=== PATIENT | male | born 1980 | race Caucasian/White ===

== ENCOUNTER 2018-01-04 11:04 | Emergency (ER) | payer OTHER, MEDICAID ==
[2018-01-04 11:18] VITALS: BP 156/98; PULSE 94; RESP 20; TEMP 98.1; O2SAT 98
--- NOTE | 2018-01-04 11:40 | C.PDOC ---
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 Patient denies fall, back pain, numbness or weakness. Time Seen by Provider: 01/04/18 11:12 Chief Complaint (Nursing): Lower Extremity Problem/Injury History Per: Patient History/Exam Limitations: no limitations Onset/Duration Of Symptoms: Days Current Symptoms Are (Timing): Still Present Past Medical History Reviewed: Historical Data, Nursing Documentation, Vital Signs Vital Signs: Last Vital Signs Temp 98.1 F 01/04/18 11:11 Pulse 94 H 01/04/18 11:11 Resp 20 01/04/18 11:11 BP 156/98 H 01/04/18 11:11 Pulse Ox 98 01/04/18 12:23 - Medical History PMH: Asthma, Gastrointestinal Ulcer Surgical History: No Surg Hx Family History: States: No Known Family Hx - Social History Hx Alcohol Use: No (Former) Hx Substance Use: No (Past use of marijuana) - Immunization History Hx Tetanus Toxoid Vaccination: No Hx Influenza Vaccination: No Hx Pneumococcal Vaccination: No Review Of Systems Musculoskeletal: Positive for: Foot Pain. Negative for: Back Pain, Leg Pain Skin: Negative for: Rash, Bruising Neurological: Negative for: Weakness, Numbness Physical Exam - Physical Exam Appears: Non-toxic, No Acute Distress Skin: Warm, Dry, No Rash Head: Atraumatic, Normacephalic Eye(s): bilateral: Normal Inspection Neck: Normal ROM Chest: Symmetrical Extremity: Tenderness (left ankle below lateral malleolus), Capillary Refill (< 2 seconds), No Deformity, Swelling (left ankle below malleolus) Pulses: Left Dorsalis Pedis: Normal Neurological/Psych: Oriented x3, Normal Speech, Normal Motor, Normal Sensation Gait: Steady ED Course And Treatment O2 Sat by Pulse Oximetry: 98 (RA) Pulse Ox Interpretation: Normal Medical Decision Making Medical Decision Making: Impression: Ankle injury Plan: * Ankle xray * Motrin * Ice pack Progress: Xray viewed by me showing no acute fracture or dislocation Clinical partner applied aircast splint to ankle. Patient declined crutches. Patient advised to rest ice and elevate ankle. Recommend Motrin for pain. Disposition Counseled Patient/Family Regarding: Diagnosis, Need For Followup, Rx Given - Disposition Referrals: Ned Ulloa III, MD [Staff Provider] - Disposition: HOME/ ROUTINE Disposition Time: 11:39 Condition: GOOD Additional Instructions: Your xray was normal, no fracture. Please apply ice to area 15 minutes three times a day. Take Motrin as needed for pain every 6 hours, with food to not upset stomach. Follow up with orthopedic if pain persists over one week. Prescriptions: Ibuprofen [Motrin] 600 mg PO Q8 #30 tab Instructions: Ankle Sprain (DC) Forms: [employer] (Armenian), Work Excuse - POA Present On Arrival: None - Clinical Impression Clinical Impression: Left ankle sprain - PA / DIET TECH / Resident Statement MD/DO has reviewed & agrees with the documentation as recorded. - Scribe Statement The provider has reviewed the documentation as recorded by the Brook Jones All medical record entries made by the Maciblanette were at my direction and personally dictated by me. I have reviewed the chart and agree that the record accurately reflects my personal performance of the history, physical exam, medical decision making, and the department course for this patient. I have also personally directed, reviewed, and agree with the discharge instructions and disposition.
--- NOTE | 2018-01-04 12:00 | RAD ---
Date of service: 01/04/2018 PROCEDURE: Left Ankle Radiographs. HISTORY: pain s.p twisting COMPARISON: None FINDINGS: BONES: No acute fracture. JOINTS: Ankle mortise maintained. Talar dome intact SOFT TISSUES: Normal. OTHER FINDINGS: None. IMPRESSION: No demonstrated fracture or dislocation.
== END 2018-01-04 11:58 | disposition home or self-care (01) ==
LOC: C.ER 11:04
DX: S93.402A Sprain of unspecified ligament of left ankle, initial encounter (principal); X50.9XXA Other and unspecified overexertion or strenuous movements or postures, initial encounter; Y92.89 Other specified places as the place of occurrence of the external cause; Y99.0 Civilian activity done for income or pay

== ENCOUNTER 2018-02-16 22:10 | Emergency (ER) | payer OTHER, MEDICAID ==
[2018-02-16 22:47] LABS: BASO # 0.1 K/uL (0.0-0.2); BASO % 0.5 % (0.0-2.0); EOS # 0.1 K/uL (0.0-0.7); EOS % 1.2 % (0.0-4.0); HEMOGLOBIN 14.3 g/dL (12.0-18.0); LYMPH # 3.2 K/uL (1.0-4.3); LYMPH % 28.2 % (20.0-40.0); MEAN CELL VOLUME 80.9 fL (80.0-94.0); MEAN CORPUSCULAR HEMOGLOBIN 26.7 pg (27.0-31.0); MEAN PLATELET VOLUME 9.2 fL (7.2-11.7); MONO % 8.5 % (0.0-10.0); NEUT # 7.1 K/uL (1.8-7.0); NEUT % 61.6 % (50.0-75.0); NRBC % 0.1 % (0.0-2.0); RBC 5.36 Mil/uL (4.40-5.90); RED CELL DISTRIBUTION WIDTH 15.4 % (11.5-14.5); WHITE BLOOD COUNT 11.5 K/uL (4.8-10.8)
[2018-02-16 22:59] LABS: ALB/GLOB RATIO 1.3 (1.0-2.1); ALBUMIN 4.5 g/dL (3.5-5.0); ALT/SGPT 46 U/L (21-72); AST/SGOT 26 U/L (17-59); BLOOD UREA NITROGEN 13 mg/dL (9-20); CALCIUM 9.4 mg/dl (8.6-10.4); GFR NON-AFRICAN AMERICAN > 60; LIPASE 61 U/L (23-300)
--- NOTE | 2018-02-16 23:41 | C.PDOC ---
History Of Present Illness 37 year old male with PMHx of chronic lower back pain presents to the ED for evaluation. 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 Patient c/o bright red blood per rectum with bowel movements for the past few weeks. Patient states he recently got out of care home and has put on a significant amount of weight up to 25 pounds in the last 2 months. Patient states he had similar episodes during incarceration but did not receive further evaluation. Patient is also c/o crampy abdominal pain. Patient denies fever, chill, nausea, vomit, diarrhea, weight loss, dizziness. Time Seen by Provider: 02/16/18 22:22 Chief Complaint (Nursing): GI Problem History Per: Patient History/Exam Limitations: no limitations Onset/Duration Of Symptoms: Days Current Symptoms Are (Timing): Still Present Location Of Pain/Discomfort: Diffuse Radiation Of Pain To:: None Quality Of Discomfort: Cramping Associated Symptoms: denies: Nausea, Vomiting, Diarrhea Alleviating Factors: None Recent travel outside of the [place]: No Additional History Per: Patient Past Medical History Reviewed: Historical Data, Nursing Documentation, Vital Signs Vital Signs: Last Vital Signs Temp 98.2 F 02/16/18 22:15 Pulse 96 H 02/16/18 22:15 Resp 18 02/16/18 22:15 BP 153/97 H 02/16/18 22:15 Pulse Ox 96 02/17/18 00:33 - Medical History PMH: Asthma, Gastrointestinal Ulcer Surgical History: No Surg Hx Family History: States: Unknown Family Hx - Social History Hx Alcohol Use: No (Former) Hx Substance Use: No (Past use of marijuana) - Immunization History Hx Tetanus Toxoid Vaccination: No Hx Influenza Vaccination: No Hx Pneumococcal Vaccination: No Review Of Systems Constitutional: Negative for: Fever, Chills, Weight loss Cardiovascular: Negative for: Chest Pain, Palpitations Respiratory: Negative for: Cough, Shortness of Breath Gastrointestinal: Positive for: Abdominal Pain, Melena. Negative for: Nausea, Vomiting, Diarrhea Genitourinary: Negative for: Dysuria, Hematuria Skin: Negative for: Rash Neurological: Negative for: Weakness, Numbness Physical Exam - Physical Exam Appears: Non-toxic, No Acute Distress, Other (morbidly obese) Skin: Normal Color, Warm, Dry Head: Atraumatic, Normacephalic Eye(s): bilateral: Normal Inspection Neck: Normal ROM, Supple Chest: Symmetrical Cardiovascular: Rhythm Regular Respiratory: Normal Breath Sounds, No Rales, No Rhonchi, No Wheezing Gastrointestinal/Abdominal: Soft, No Tenderness, No Guarding, No Rebound Rectal: Maroon Stool (light brown), Hemorrhoids (large external at 9 o'clock position), No Tenderness Back: No CVA Tenderness, No Vertebral Tenderness Extremity: Normal ROM, No Tenderness, No Swelling Neurological/Psych: Oriented x3, Normal Speech, Normal Motor, Normal Sensation Gait: Steady ED Course And Treatment - Laboratory Results Result Diagrams: 02/16/18 22:43 02/16/18 22:43 Lab Interpretation: Normal ([id number] mild leukocytosis, occult stool blood neg, UA neg.) O2 Sat by Pulse Oximetry: 96 (ON RA) Pulse Ox Interpretation: Normal - Radiology CXR: Interpreted by Me CXR Interpretation: Yes: No Acute Disease - Other Rad abd x 2 X-Ray: Interpreted by Me (+FOS) Reevaluation Time: 00:28 Reassessment Condition: Improved Medical Decision Making Medical Decision Making: Plan: * Labs * Obstructive series X-Ray * UA rapid weight gain since release from incarceration Chronic constipation External hemorroid causing BRBPR with hard stools guaiaic stool neg, hgb 14 wnl diet/exercise educated. outpatient f/u for GI referral PRN Disposition Doctor Will See Patient In The: Office Counseled Patient/Family Regarding: Studies Performed, Diagnosis - Disposition Referrals: [facility] [Outside] [facility] [Outside] [facility] [Outside] [facility] [Outside] [place] [facility] [Outside] Non [facility] Provider, [Primary Care Provider] - Disposition: HOME/ ROUTINE Disposition Time: 00:29 Condition: GOOD Additional Instructions: drink a laxative now (recommend and bottle of Mag Citrate) re-evaluate your abdominal discomfort after using the bathroom 2-3 times. diet changes and weight loss 7 fresh fruits and vegetables daily to promote more soft/formed bowel movements drink more water. this will help heal external hemorroids Follow-up with our outpatient [facility] to consider referral to GI as needed Occasional laxatives as needed should symptoms return Instructions: Hemorrhoids, Constipation, Adult (DC) Forms: [employer] (Uruguayan) - Clinical Impression Clinical Impression: Hemorrhoids, Colicky abdominal pain - Scribe Statement The provider has reviewed the documentation as recorded by the Scribe Mendez Vera All medical record entries made by the Scribe were at my direction and personally dictated by me. I have reviewed the chart and agree that the record accurately reflects my personal performance of the history, physical exam, medical decision making, and the department course for this patient. I have also personally directed, reviewed, and agree with the discharge instructions and disposition.
[2018-02-17 00:34] LABS: SQUAMOUS EPITHIAL 7 /hpf (0-5); URINE BILIRUBIN NEGATIVE (NEGATIVE); URINE BLOOD 1+ (NEGATIVE); URINE CLARITY Hazy (Clear); URINE COLOR Yellow (YELLOW); URINE GLUCOSE (UA) NORMAL (Normal); URINE LEUKOCYTE ESTERASE 1+ Leu/uL (Negative); URINE PROTEIN 1+ mg/dL (NEGATIVE); URINE UROBILINOGEN NORMAL mg/dL (0.2-1.0)
[2018-02-17 00:41] LABS: BENZODIAZEPINES, UR NEGATIVE (NEGATIVE); OPIATES, UR NEGATIVE (NEGATIVE); PHENCYCLIDINE, UR NEGATIVE (NEGATIVE)
[2018-02-17 00:44] LABS: BARBITURATES, UR POSITIVE (NEGATIVE)
[2018-02-17 00:52] VITALS: BP 153/90; PULSE 84; RESP 20; TEMP 98; O2SAT 100
--- NOTE | 2018-02-17 09:10 | RAD ---
Date of service: 02/16/2018 PROCEDURE: Radiographs of the chest and abdomen (obstructive series) HISTORY: Abdominal pain COMPARISON: No prior. TECHNIQUE: AP radiograph of the chest, with upright and supine radiographs of the abdomen. FINDINGS: CHEST: Lungs: Clear. Cardiovascular: Normal size heart. No pulmonary vascular congestion. Pleura: No pleural fluid. No pneumothorax. Other findings: None. ABDOMEN AND PELVIS: Bowel: Unremarkable bowel gas pattern. No evidence of mechanical obstruction. Free air: None. Bones: Unremarkable. Other findings: Few small calcifications seen overlying the inferior true pelvis may represent calcified pelvic phleboliths however correlation with urinalysis suggested to exclude the possibility of urine bladder or UVJ calculus. IMPRESSION: Unremarkable radiographs of chest and abdomen. No evidence of mechanical bowel obstruction.
== END 2018-02-17 00:52 | disposition home or self-care (01) ==
LOC: SUPCPDRO 22:10 → C.ER 22:10
DX: K64.4 Residual hemorrhoidal skin tags (principal); R10.84 Generalized abdominal pain
CPT/HCPCS: 74022; 80053; 80320; 80324; 80345; 80346; 80349; 80353; 80358; 80361; 81001; 83690; 83992; 85025; 99285; G0328

== ENCOUNTER → 2018-02-17 18:25 | Emergency (ER) | payer OTHER, MEDICAID ==
[~2018-02-17 18:25] MED LIST: Bacitracin 500 Units/gm Oint Foilpak UD ONE
== END | disposition left against medical advice (07) ==
LOC: C.ER 18:25
DX: Z02.89 Encounter for other administrative examinations (principal); J45.909 Unspecified asthma, uncomplicated

== ENCOUNTER 2018-06-18 01:31 | Emergency (ER) | payer OTHER, MEDICAID ==
[2018-06-18 01:40] VITALS: BP 124/83; PULSE 105; RESP 18; TEMP 97.9; O2SAT 98
--- NOTE | 2018-06-18 02:16 | C.PDOC ---
History Of Present Illness 38 year old male presents to the ER with a complaint of itching a discoloration to the upper arms at the site of tattoos that were placed 1 week ago. Patient states the skin seems to be peeling off with redness but no pain fever or other complaints. Time Seen by Provider: 06/18/18 01:59 Chief Complaint (Nursing): Abnormal Skin Integrity History Per: Patient History/Exam Limitations: no limitations Onset/Duration Of Symptoms: Days (1 week) Current Symptoms Are (Timing): Still Present Location Of Injury: Right: Arm (Upper), Left: Arm Quality Of Symptoms: Itching, Other (Redness) Recent travel outside of the [place]: No Past Medical History Reviewed: Historical Data, Nursing Documentation, Vital Signs Vital Signs: Last Vital Signs Temp 97.9 F 06/18/18 01:39 Pulse 105 H 06/18/18 01:39 Resp 18 06/18/18 01:39 BP 124/83 06/18/18 01:39 Pulse Ox 98 06/18/18 01:39 - Medical History PMH: Asthma, Gastrointestinal Ulcer Family History: States: Unknown Family Hx - Social History Hx Alcohol Use: No (Former/on the program) Hx Substance Use: No (Past use of marijuana) - Immunization History Hx Tetanus Toxoid Vaccination: No Hx Influenza Vaccination: No Hx Pneumococcal Vaccination: No Review Of Systems Constitutional: Negative for: Fever, Chills Skin: Positive for: Other (Itching and redness) Physical Exam - Physical Exam Appears: Non-toxic Skin: Warm, Dry, Other (Diffuse tattoos to bilateral upper extremities with few scattered spots of appearingly recent tattoos with localized erythema and mild scabbing. No drainage, streaking, diffuse erythema, warmth, fluctuant mass.) Head: Atraumatic, Normacephalic Eye(s): bilateral: Normal Inspection Extremity: Normal ROM (x4) Pulses: Left Radial: Normal, Right Radial: Normal Neurological/Psych: Oriented x3, Normal Speech, Normal Motor, Normal Sensation ED Course And Treatment O2 Sat by Pulse Oximetry: 98 (Room air) Pulse Ox Interpretation: Normal Progress Note: Benadryl administered for itching with relief. Patient given keflex prophylactically and advised to follow up with PMD or return if symptoms worsen. Disposition Counseled Patient/Family Regarding: Diagnosis, Need For Followup - Disposition Referrals: [facility] [Outside] Disposition: HOME/ ROUTINE Disposition Time: 02:02 Condition: STABLE Additional Instructions: Please follow up with PMD Apply warm compress to area Apply neosporin ointment Take zyrtec or claritin for itching Return to ER if worse Prescriptions: Cephalexin [cephalexin] 500 mg PO Q6 #20 cap Instructions: Contact Dermatitis (DC) Forms: [employer] (Bulgarian) - Clinical Impression Clinical Impression: Contact dermatitis, Skin irritation - PA / PROFESSOR OF ARCHITECTURE / Resident Statement MD/DO has reviewed & agrees with the documentation as recorded. - Scribe Statement The provider has reviewed the documentation as recorded by the Scriblanette Mohan All medical record entries made by the Maciblanette were at my direction and personally dictated by me. I have reviewed the chart and agree that the record accurately reflects my personal performance of the history, physical exam, medical decision making, and the department course for this patient. I have also personally directed, reviewed, and agree with the discharge instructions and disposition.
== END 2018-06-18 02:24 | disposition home or self-care (01) ==
LOC: C.ER 01:31
DX: L25.9 Unspecified contact dermatitis, unspecified cause (principal)

== ENCOUNTER 2018-09-08 23:26 | Emergency (ER) | payer MEDICAID, OTHER ==
[2018-09-08 23:34] VITALS: BP 153/100; PULSE 86; RESP 16; TEMP 98; O2SAT 98
--- NOTE | 2018-09-09 00:44 | C.PDOC ---
History Of Present Illness 38 year old male presents to the ED c/o right hand pain. Patient reports while at work today a michael feel on top of his right hand. Patient reports pain worsens with movement of the hand. Patient denies rash, weakness, numbness, other extremity injuries. Time Seen by Provider: 09/08/18 23:36 Chief Complaint (Nursing): Upper Extremity Problem/Injury History Per: Patient History/Exam Limitations: no limitations Onset/Duration Of Symptoms: Hrs Current Symptoms Are (Timing): Still Present Quality: "Pain" Exacerbating Factor(s): Movement Recent travel outside of the [place]: No Additional History Per: Patient Past Medical History Reviewed: Historical Data, Nursing Documentation, Vital Signs Vital Signs: Last Vital Signs Temp 98 F 09/08/18 23:33 Pulse 86 09/08/18 23:33 Resp 16 09/08/18 23:33 BP 153/100 H 09/08/18 23:33 Pulse Ox 98 09/08/18 23:33 - Medical History PMH: Asthma, Gastrointestinal Ulcer Surgical History: No Surg Hx Family History: States: Unknown Family Hx - Social History Hx Alcohol Use: No (Former/on the program) Hx Substance Use: No (Past use of marijuana) - Immunization History Hx Tetanus Toxoid Vaccination: No Hx Influenza Vaccination: No Hx Pneumococcal Vaccination: No Review Of Systems Constitutional: Negative for: Fever, Chills Respiratory: Negative for: Cough Gastrointestinal: Negative for: Nausea, Vomiting Musculoskeletal: Positive for: Hand Pain Skin: Negative for: Rash Neurological: Negative for: Weakness, Numbness Physical Exam - Physical Exam Appears: Non-toxic, No Acute Distress Skin: Normal Color, Warm, Dry Head: Atraumatic, Normacephalic Eye(s): bilateral: Normal Inspection Neck: Normal ROM, Supple Extremity: Normal ROM (painful right hand, remainder of extremities normal), Tenderness (right snuff box ), Capillary Refill (< 2 seconds), Swelling (right thenar eminence ) Pulses: Left Radial: Normal, Right Radial: Normal Neurological/Psych: Oriented x3, Normal Speech, Normal Cognition, Normal Motor, Normal Sensation Gait: Steady ED Course And Treatment O2 Sat by Pulse Oximetry: 98 (ON RA) Pulse Ox Interpretation: Normal - Other Rad Right hand X-Ray X-Ray: Interpreted by Me, Viewed By Me Interpretation: No acute fracture seen, old healed fracture of 5th metacarpal seen Progress Note: Plan: - right hand X-Ray. Patient was placed on a short volar splint for support and possible scafoid fracture. Patient was advised to take NSAIDs for pain management and follow up with PMD and hand doctor. Disposition Counseled Patient/Family Regarding: Diagnosis, Need For Followup - Disposition Referrals: Chloe Malloy MD [Staff Provider] - Disposition: HOME/ ROUTINE Disposition Time: 00:41 Condition: STABLE Additional Instructions: Keep splint for support Follow up with hand doctor Return to ER if severe pain, moderate swelling, numbness, or worse Prescriptions: Ibuprofen [Motrin] 600 mg PO Q6H #20 tab Instructions: Contusion (DC) Forms: [employer] [employer] (Maltese), Work Excuse - Clinical Impression Clinical Impression: Injury of right hand, Contusion of hand, right - PA / TRANSACTIONAL PARALE[employer] / Resident Statement MD/DO has reviewed & agrees with the documentation as recorded. - Scribe Statement The provider has reviewed the documentation as recorded by the Scribe Mendez Vera All medical record entries made by the Scribe were at my direction and personally dictated by me. I have reviewed the chart and agree that the record accurately reflects my personal performance of the history, physical exam, medical decision making, and the department course for this patient. I have also personally directed, reviewed, and agree with the discharge instructions and disposition.
--- NOTE | 2018-09-09 06:13 | RAD ---
Right hand three views History: Injury. Pain. Comparison: None available. Findings: Cortical thickening with bony hypertrophy noted at the base of the 5th metacarpal bone suggestive for chronic fracture deformity. Clinical correlation. Remainder of the visualized osseous structures appear grossly preserved. Impression: Cortical thickening with bony hypertrophy noted at the base of the 5th metacarpal bone suggestive for chronic fracture deformity. Clinical correlation. If pain persists, consider MRI.
== END 2018-09-09 00:49 | disposition home or self-care (01) ==
LOC: C.ER 23:26
DX: S60.221A Contusion of right hand, initial encounter (principal); W22.8XXA Striking against or struck by other objects, initial encounter; Y92.89 Other specified places as the place of occurrence of the external cause; Y99.0 Civilian activity done for income or pay